=== PATIENT | male | born 1990 | race Two or more races ===

== ENCOUNTER 2022-05-22 00:36 | Emergency (ER) | payer SELFPAY ==
[~2022-05-22] VITALS: Ht 185.4 cm; Wt 108.9 kg
[2022-05-22] MEDS ORDERED: CYCL10TA9 PO (03:43)
[2022-05-22] MEDS ORDERED: IBUP-1957 PO (03:43)
--- NOTE | 2022-05-22 04:36 | NUR ---
Patient discharged to home in stable condition. Written and verbal after care instructions given. Patient verbalizes understanding of instruction.pt. ambulatory with a steady gait, no sob noted. no s/s of distress noted
[2022-05-22 04:37] VITALS: BP 120/70
== END 2022-05-22 04:38 | disposition home or self-care (01) ==
LOC: ER 00:39
DX: M54.50 Low back pain, unspecified (principal); M25.561 Pain in right knee; V89.2XXA Person injured in unspecified motor-vehicle accident, traffic, initial encounter; Y93.89 Activity, other specified; Y92.89 Other specified places as the place of occurrence of the external cause; Y99.8 Other external cause status
CPT/HCPCS: 72131-TC; 73560-TC